=== PATIENT | male | born 1975 | race Caucasian/White ===

== ENCOUNTER → 2017-12-19 | Day surgery (SDC) | payer OTHER, MEDICAID ==
[~2017-12-19] MED LIST: ACETAMINOPHEN 325 MG TAB ONE; CYMB30CA PO; DEXAMETHASONE SOD PHOS 4 MG/ML VIAL ONE; DIAZ10 PO; EPINEPHrine HCL (1:1000) 1 MG/ML VIAL ONE; LACTATED RINGER'S 1000 ML INJ 1,000 ML ONE; MIDAZOLAM HCL 2 MG/2 ML VIAL ONE; MOXIFLOXACIN 0.5% OPHT SOLN 3 ML BTL ONE; PHENYLEPHRINE HCL 10% OPTH SOLN 5 ML BTL ONE; PROPOFOL 200 MG/20 ML AMP IV ONE; TETRACAINE 0.5% OPTH SOLN 4 ML BTL ONE; TOBRAMYCIN/DEXAMETHASONE OPTH OINT 3.5 GM TUBE ONE; ceFAZolin INJ 1,000 MG VIAL ONE; prednisoLONE ACETATE 1% OPHT SUSP 5 ML BTL ONE
--- NOTE | 2017-12-28 18:02 | MP ---
cc: Jame Díaz MD DATE OF OPERATION: 12/19/2017 PREOPERATIVE DIAGNOSIS: Dislocated intraocular lens, retinal tear, retinal detachment, left eye. POSTOPERATIVE DIAGNOSIS: Dislocated intraocular lens, retinal tear, retinal detachment, left eye. PROCEDURE PERFORMED: Pars plana vitrectomy, removal of dislocated posterior chamber intraocular lens, retinal detachment repair, endolaser, air fluid exchange, insertion of 12% SF6 gas, insertion of anterior chamber intraocular lens MTA4UO/20.5 diopter power, superior iridectomy, left eye. COMPLICATIONS: None. ESTIMATED BLOOD LOSS: Less than 1 mL ANESTHESIA: general Kourtney. INDICATIONS FOR PROCEDURE: This patient presented with dislocated posterior chamber intraocular lens after trauma. The patient elected for surgical correction, with explant of his dislocated lens and insertion of anterior chamber intraocular lens. On examination, the patient also had a retinal detachment, which was also to be treated. The patient elected for surgical correction risks, benefits and alternatives. PROCEDURE NOTE: After informed consent was obtained, the patient was brought to the operating room, where general anesthesia was established. The left eye was prepped and draped in sterile fashion. Betadine in the conjunctival fornix. A 3-port pars plana vitrectomy was established with a self-retaining infusion cannula. Core vitreous was evacuated and vitreous traction to the peripheral retina was relieved. The retinal tears were identified along with retinal detachment. This area was treated with endolaser. The posterior chamber intraocular lens was freed from surrounding vitreous, brought into the anterior chamber. A scleral tunnel was fashioned using a crescent blade and keratome. The posterior chamber intraocular lens was explanted and anterior chamber intraocular lens, MTA4UO/20.5 diopter power was inserted into the anterior chamber and rotated into position. A superior iridectomy was made with the vitrector. Scleral depressed examination revealed no untreated retinal tears or detachments. The previously treated retinal tears were identified. A fluid exchange was carried out and 12% SF6 gas was instilled. Trocars were removed and sclerotomy was closed. The scleral tunnel was closed with 7-0 Vicryl suture. Conjunctiva was reapproximated with 6-0 plain gut. Subconjunctival injection of Ancef and dexamethasone were given. The eye was patched with tobramycin ointment. The patient was brought to the recovery room in stable condition and continue to followup with for his postoperative care. MD RHINA Sood/STEPHANIE , 05:06 PM , 05:59 PM
== END | disposition home or self-care (01) ==
LOC: ESDC 09:29
PROVIDERS: ATTEND Ophthalmology
DX: H27.132 Posterior dislocation of lens, left eye (principal); H33.022 Retinal detachment with multiple breaks, left eye
CPT/HCPCS: 00142; 00145; 00147; 66761; 66825; 67108; J0171; J0690; J1100; J2250; J3010; J7120; V2630